=== PATIENT | female | born 1930 | race Caucasian/White ===

== ENCOUNTER 2018-01-03 15:05 | Inpatient (IN) | payer MEDICARE ==
[2018-01-03] MEDS ORDERED: traMADol HCl 50 MG TAB PO PRN (16:11)
[2018-01-03] MEDS ORDERED: Ibuprofen 400 MG TAB PO PRN (16:11)
[2018-01-03] MEDS ORDERED: Zolpidem Tartrate 5 MG TAB PO PRN (16:14)
[2018-01-03] MEDS ORDERED: [UNRECOGNIZED DRUG - REMARK] FS SCH (16:15)
[2018-01-03] MEDS: Acetaminophen 325 MG TAB PO SCH ×3 (17:55→22:31)
[2018-01-03] MEDS: Carvedilol 6.25 MG TAB PO SCH (17:55)
[2018-01-03] MEDS: Lisinopril 20 MG TAB PO SCH (20:43)
[2018-01-03] MEDS: Famotidine 20 MG TAB PO SCH (20:43)
[2018-01-03] MEDS: Senokot S 8.6-50 MG TAB PO SCH (20:44)
[2018-01-04] MEDS: Acetaminophen 325 MG TAB PO SCH ×6 (01:07→20:12)
[2018-01-04 05:53] LABS: Band 3 % (5-11); Eosinophils 5 % (0-10); Hemoglobin 8.4 g/dL (12.0-16.0); Lymphocytes 20 % (21-51); MDiff Complete? YES; Mean Corpuscular HGB CONC 31.6 g/dL (32.0-36.0); Mean Corpuscular Hemoglobin 28.7 pg (27.0-31.0); Mean Corpuscular Volume 90.8 fl (81.0-99.0); Mean Platelet Volume 7.7 fL (7.4-10.4); Microcytosis SLIGHT = 6-15 cells (100X) (0-5/hpf); Monocytes 4 % (0-10); Neutrophil 68 % (42-75); PLT Morphology Comment Appears Adequate; Platelet Count 150 thou/uL (130-400); RBC Distribution Width 13.8 % (11.5-14.5); Red Blood Cell (RBC) Count 2.94 mill/uL (4.20-5.40)
[2018-01-04 05:54] LABS: Anion Gap 7 mmol/L (10-20); BUN (Urea Nitrogen) 11 mg/dL (9.8-20.1); Calc. Creatinine Clearance 55 mL/min (70-130); Calcium 8.2 mg/dL (7.8-10.44); Carbon Dioxide 28 mmol/L (23-31); Chloride 111 mmol/L (98-107); Estimated GFR-MDRD 60; Glucose 98 mg/dL (83-110); Potassium 3.3 mmol/L (3.5-5.1); Sodium 143 mmol/L (136-145)
[2018-01-04] MEDS: Carvedilol 6.25 MG TAB PO SCH ×2 (08:25→17:34)
[2018-01-04] MEDS: Lisinopril 20 MG TAB PO SCH ×2 (08:25→20:12)
[2018-01-04] MEDS: Senokot S 8.6-50 MG TAB PO SCH ×2 (08:26→20:11)
[2018-01-04] MEDS: Famotidine 20 MG TAB PO SCH ×2 (08:26→20:12)
[2018-01-04] MEDS ORDERED: PREDNISOLONE 0.12% EA EYE SCH (09:00)
[2018-01-04] MEDS: PREDNISOLONE 0.12% EA EYE SCH (12:34)
[2018-01-04] MEDS ORDERED: Potassium Chloride 20 MEQ TAB PO SCH (13:15)
--- NOTE | 2018-01-04 13:44 | HP ---
DATE OF ADMISSION: 01/03/2018 CHIEF COMPLAINT: Right femoral neck fracture, status post open reduction internal fixation here for therapy. HISTORY OF PRESENT ILLNESS: This is a very pleasant 87-year-old female, who apparently fel l in her bathroom. She states that she lost her balance. She denies any loss of consciousness. She denies any palpitations. She denies any lightheadedness or dizziness during this episode, but she h as had episodes of dizziness in the past. She apparently was able to get up on her own and went to b ed, but then when she woke up 4 hours later and try to walk, she had significant pain and so came to the ER. In the ER, she was diagnosed with a right femoral neck fracture and underwent open reduction internal fixation. She has been transferred here for therapy. Currently, she states the pain is we ll controlled. She denies any chest pain or shortness of breath. She denies any lightheadedness, di zziness or fainting spells. Her daughter is in the room. PAST MEDICAL HISTORY: 1. Atrial fibrillation. 2. Hypertension. 3. Insomnia. PAST SURGICAL HISTORY: 1. History of colon resection. 2. Eye surgery. CURRENT MEDICATIONS: She has been transferred here on the following medications: 1. Tylenol 650 q. 4 hours p.r.n. 2. Aspirin 81 mg daily. 3. Carvedilol 12.5 mg b.i.d. 4. Pepcid 20 mg b.i.d. 5. Ibuprofen 600 mg q.8 hours p.r.n. for pain 1-5. 6. Zestril 20 mg b.i.d. 7. Prednisolone eyedrops. 8. Tramadol 100 mg p.o. q.6 hours p.r.n. for pain 5-10. 9. Ambien 5 mg p.o. at bedtime p.r.n. ALLERGIES: No known drug allergies. FAMILY HISTORY: Noncontributory to current admission. PSYCHOSOCIAL HISTORY: She lives independently active. No history of tobacco, alcohol, or IV drug ab use. REVIEW OF SYSTEMS: CARDIOVASCULAR: Denies any chest pain, shortness of breath, palpitations, paroxysmal nocturnal dyspn ea, orthopnea, pedal edema. RESPIRATORY: Denies any chronic cough, expectoration or pleuritic type chest pain. GASTROINTESTINAL: Denies any nausea, vomiting, diarrhea, constipation, hematemesis, melena, hematoch ezia. GENITOURINARY: Denies any frequency, urgency, dysuria, or hematuria. RUG SETTER AXMINSTER: Denies any focal numbness, weakness, or fainting spells. She does have pain in her hip area, b ut is controlled with medications. SKIN: She denies any rash. ENT: Denies any difficulty with speech or swallowing. PHYSICAL EXAMINATION: GENERAL: Very pleasant 87-year-old female who is resting comfortably in no apparent distre ss. She responds appropriately to questions. She is alert, awake, and oriented x3. Her youngest alexander meyer is in the room as well. VITAL SIGNS: She is afebrile, heart rate is 89, respirations 22, oxygen saturation 99% on room air, and blood pressure is 114/65. HEENT: Normocephalic, atraumatic. Pupils equally reactive to light and accommodation. NECK: No JVD, thyromegaly, cervical adenopathy, throat exudates or carotid bruits. CARDIOVASCULAR: S1 and S2 plus, rate and rhythm regular. RESPIRATORY: Normal vesicular breath sounds heard in all lung chow. ABDOMEN: Soft, nontender, bowel sounds heard in all quadrants. EXTREMITIES: Without cyanosis or clubbing. Trace edema right leg. Right hip incision with dressing . CENTRAL NERVOUS SYSTEM: Generalized weakness. LABORATORY VALUES: White count is 6.0, H&H is 8.4 and 26.7. Sodium 143, potassium is slightly low a t 3.3. BUN and creatinine is 11 and 0.89. IMPRESSION: 1. Status post fall and right hip fracture, status post open reduction internal fixation. 2. History of atrial fibrillation, now in sinus rhythm. 3. Hypertension, well controlled. 4. Anemia, likely due to acute blood loss. 5. Hypokalemia. 6. Deconditioning. PLAN: 1. Continue low sodium diet. 2. Replace potassium. 3. Continue current medications. 4. Deep venous thrombosis prophylaxis with PlexiPulses. 5. Stress ulcer prophylaxis. She is on Pepcid. 6. Monitor potassium levels. 7. Physical therapy and occupational therapy. 8. Monitor heart rate and rhythm. 9. Discussed with patient and daughter in detail. All questions answered. 10. Estimated length of stay 7-10 days.
[2018-01-05 05:36] LABS: Anion Gap 10 mmol/L (10-20); BUN (Urea Nitrogen) 12 mg/dL (9.8-20.1); Calc. Creatinine Clearance 54 mL/min (70-130); Carbon Dioxide 25 mmol/L (23-31); Chloride 111 mmol/L (98-107); Estimated GFR-MDRD 59; Glucose 99 mg/dL (83-110); Potassium 3.4 mmol/L (3.5-5.1); Sodium 143 mmol/L (136-145)
[2018-01-05] MEDS: Acetaminophen 325 MG TAB PO SCH ×6 (05:46→20:01)
[2018-01-05] MEDS: Carvedilol 6.25 MG TAB PO SCH ×2 (08:43→17:55)
[2018-01-05] MEDS: Lisinopril 20 MG TAB PO SCH ×2 (08:43→20:02)
[2018-01-05] MEDS: Senokot S 8.6-50 MG TAB PO SCH ×2 (08:45→20:03)
[2018-01-05] MEDS: Famotidine 20 MG TAB PO SCH ×2 (08:47→20:02)
[2018-01-05] MEDS: PREDNISOLONE 0.12% EA EYE SCH ×2 (14:27→14:42)
[2018-01-06] MEDS: Acetaminophen 325 MG TAB PO SCH ×6 (02:16→21:42)
[2018-01-06] MEDS: Carvedilol 6.25 MG TAB PO SCH ×2 (08:17→17:32)
[2018-01-06] MEDS: Famotidine 20 MG TAB PO SCH ×2 (08:18→21:36)
[2018-01-06] MEDS: Lisinopril 20 MG TAB PO SCH ×2 (08:19→21:36)
[2018-01-06] MEDS: Senokot S 8.6-50 MG TAB PO SCH ×2 (08:20→21:35)
[2018-01-06] MEDS: PREDNISOLONE 0.12% EA EYE SCH (08:23)
[2018-01-06] MEDS ORDERED: Carvedilol 25 MG TAB PO SCH (20:00)
--- NOTE | 2018-01-06 23:25 | PRG ---
DATE OF SERVICE: 01/06/2018 SUBJECTIVE: The patient feels well, lying in bed with minimal complaints of pain in her right hip, s tatus post open reduction and internal fixation. When questioned about her surgery and her blood pre ssure control, she states her blood pressure has never been fairly well controlled, only takes p.r.n. hydralazine per instructions of Dr. Cardoza in addition to her regular medication. She has a history of paroxysmal atrial fibrillation, is now on diltiazem and carvedilol for control of this and her bl ood pressure. OBJECTIVE: VITAL SIGNS: Blood pressure 177/77 now. Temperature is 97.6, pulse 65, respirations 18, O2 sats 98% on room air. LUNGS: Clear. CARDIAC: Shows regular rhythm. ABDOMEN: Soft, nontender. SKIN AND EXTREMITIES: Display healing right hip incision. ASSESSMENT: 1. Uncontrolled hypertension. We will increase carvedilol 25 twice daily. May start routine hydral azine. 2. History of atrial fibrillation, now in sinus rhythm, diltiazem, metoprolol. We will watch for br adycardia. 3. Anemia, stable. 4. Hypokalemia, resolved. PLAN: Increase carvedilol to 25 twice daily. Continue to monitor blood pressure and vital signs dur ing therapy. Continue other medications. Continue pain relief as needed. Continue DVT and stress u lcer prophylaxis. Continue to monitor for recurrent atrial fibrillation.
[2018-01-07] MEDS: Acetaminophen 325 MG TAB PO SCH ×6 (01:39→20:03)
[2018-01-07 04:00] VITALS: BMI 30.9
[2018-01-07] MEDS: Famotidine 20 MG TAB PO SCH ×2 (08:33→20:03)
[2018-01-07] MEDS: Carvedilol 25 MG TAB PO SCH ×2 (08:33→17:31)
[2018-01-07] MEDS: Lisinopril 20 MG TAB PO SCH ×2 (08:33→20:05)
[2018-01-07] MEDS: Senokot S 8.6-50 MG TAB PO SCH ×3 (08:34→20:15)
[2018-01-07] MEDS: PREDNISOLONE 0.12% EA EYE SCH (08:34)
--- NOTE | 2018-01-07 19:14 | PRG ---
DATE OF SERVICE: 01/07/2018 SUBJECTIVE: The patient feels well, lying in bed with no complaints of headaches, dizziness, shortne ss of breath. OBJECTIVE: VITAL SIGNS: Show blood pressure still up to 193/84, temperature is 98, pulse 73, respirations 18, O 2 sats 98% on room air. LUNGS: Clear. CARDIAC: Shows regular rhythm. ABDOMEN: Soft and nontender. SKIN AND EXTREMITIES: Display no edema, clubbing or cyanosis and a healing right hip incision. ASSESSMENT: 1. Resolving right hip fracture status post open reduction internal fixation. 2. Uncontrolled hypertension on increased carvedilol, diltiazem. 3. Paroxysmal atrial fibrillation, now in sinus rhythm. The patient is doing well, lying in bed wit h no complaints of shortness of breath or chest pain. PLAN: Add amlodipine 10 mg at night. Continue carvedilol 12.5 twice daily. Continue diltiazem. Co ntinue to monitor vital signs including pulse and blood pressure. Continue PT and OT tomorrow and pa in relief with tramadol as needed.
[2018-01-08] MEDS: Acetaminophen 325 MG TAB PO SCH ×6 (00:36→20:12)
[2018-01-08] MEDS: Senokot S 8.6-50 MG TAB PO SCH ×2 (09:01→20:13)
[2018-01-08] MEDS: Lisinopril 20 MG TAB PO SCH ×2 (09:01→20:12)
[2018-01-08] MEDS: Carvedilol 25 MG TAB PO SCH ×2 (09:01→18:35)
[2018-01-08] MEDS: Famotidine 20 MG TAB PO SCH ×2 (09:01→20:12)
[2018-01-08] MEDS: PREDNISOLONE 0.12% EA EYE SCH (09:04)
[2018-01-08] MEDS ORDERED: Acetaminophen 325 MG TAB ONE (17:30)
--- NOTE | 2018-01-08 19:24 | PRG ---
DATE OF SERVICE: 01/08/2018 SUBJECTIVE: The patient feels well with minimal pain in her right hip. No shortness of breath or ch est pain. Cooperating well with therapy. OBJECTIVE: Temperature is 96.5, pulse 82, respirations 20, O2 sat 99% on room air, blood pressure 15 0/70. Therapy states that the patient is off 4 and 60 feet today with a rolling walker with standby assistance, weightbearing as tolerated. ASSESSMENT: 1. Resolving right total hip with decreased pain, increased range of motion. 2. Hypertension, improved control to goal on increased medication of amlodipine 10 mg at night and c ontinue carvedilol 12.5 twice daily and diltiazem regular dose. 3. Paroxysmal atrial fibrillation with no evidence of recurrence. PLAN: 1. Continue PT, OT. Continue to monitor vital signs during therapy. 2. Continue pain relief as needed. 3. Continue amlodipine at night, carvedilol twice daily and diltiazem once daily.
[2018-01-08] MEDS: Amlodipine 10 MG TAB PO SCH (20:12)
[2018-01-09] MEDS: Acetaminophen 325 MG TAB PO SCH ×6 (00:57→20:20)
[2018-01-09] MEDS: Lisinopril 20 MG TAB PO SCH ×2 (09:08→20:21)
[2018-01-09] MEDS: Famotidine 20 MG TAB PO SCH ×2 (09:08→20:22)
[2018-01-09] MEDS: Senokot S 8.6-50 MG TAB PO SCH ×2 (09:09→22:31)
[2018-01-09] MEDS: Carvedilol 25 MG TAB PO SCH ×2 (09:09→16:13)
[2018-01-09] MEDS: PREDNISOLONE 0.12% EA EYE SCH (11:00)
--- NOTE | 2018-01-09 13:32 | PRG ---
DATE OF SERVICE: 01/09/2018 SUBJECTIVE: Ms. Molina is doing well. Denies any complaints, resting comfortably, tolerating her th erapy. OBJECTIVE: VITAL SIGNS: She is afebrile, heart rate is 58, respirations 17, oxygen saturation 98% on room air, and blood pressure this morning was high at 174/72. CARDIOVASCULAR: S1 and S2 plus. RESPIRATORY: Normal vesicular breath sounds. ABDOMEN: Soft, nontender, bowel sounds heard in all quadrants. EXTREMITIES: Without cyanosis or clubbing. Peripheral pulses are palpable. IMPRESSION: 1. Right femoral neck fracture status post open reduction internal fixation. 2. Hypertension, not well controlled. 3. Atrial fibrillation, rate controlled. 4. Insomnia. 5. Improving deconditioning. PLAN: 1. Continue current medications. 2. Monitor blood pressure and adjust medications as needed. 3. Heart healthy diet. 4. Monitor heart and rhythm. 5. Incision care. 6. DVT and stress ulcer prophylaxis. 7. Decubitus precautions. 8. Discharge to home once stable from therapy standpoint.
[2018-01-09] MEDS: Amlodipine 10 MG TAB PO SCH (20:21)
[2018-01-10] MEDS: Acetaminophen 325 MG TAB PO SCH ×6 (00:58→19:47)
[2018-01-10 05:20] LABS: #Basophils 0.1 thou/uL (0.0-0.2); #Eosinphils 0.4 thou/uL (0.0-0.7); #Lymphocytes 2.4 thou/uL (1.20-3.40); #Monocytes 0.7 thou/uL (0.11-0.59); #Neutrophils 4.5 thou/uL (1.40-6.50); %Basophils 1.2 % (0.0-1.0); %Eosinophils 4.5 % (0.0-10.0); %Lymphocytes 29.5 % (21.0-51.0); %Monocytes 8.4 % (0.0-10.0); %Neutrophils 56.5 % (42.0-75.0); Hemoglobin 8.5 g/dL (12.0-16.0); Mean Corpuscular HGB CONC 32.3 g/dL (32.0-36.0); Mean Corpuscular Hemoglobin 28.9 pg (27.0-31.0); Mean Corpuscular Volume 89.3 fl (81.0-99.0); Platelet Count 268 thou/uL (130-400); RBC Distribution Width 13.9 % (11.5-14.5); Red Blood Cell (RBC) Count 2.95 mill/uL (4.20-5.40)
[2018-01-10 05:38] LABS: Anion Gap 10 mmol/L (10-20); BUN (Urea Nitrogen) 12 mg/dL (9.8-20.1); Calc. Creatinine Clearance 62 mL/min (70-130); Calcium 7.9 mg/dL (7.8-10.44); Carbon Dioxide 25 mmol/L (23-31); Chloride 110 mmol/L (98-107); Estimated GFR-MDRD 68; Glucose 92 mg/dL (83-110); Sodium 142 mmol/L (136-145)
[2018-01-10 06:02] LABS: Potassium 2.8 mmol/L (3.5-5.1)
[2018-01-10] MEDS ORDERED: Potassium Chloride 20 MEQ TAB PO SCH ×2 (06:15→10:15)
[2018-01-10] MEDS: Carvedilol 25 MG TAB PO SCH ×2 (08:33→17:01)
[2018-01-10] MEDS: Famotidine 20 MG TAB PO SCH ×2 (08:33→19:47)
[2018-01-10] MEDS: Lisinopril 20 MG TAB PO SCH ×2 (08:34→19:48)
[2018-01-10] MEDS: PREDNISOLONE 0.12% EA EYE SCH (08:39)
[2018-01-10] MEDS: Senokot S 8.6-50 MG TAB PO SCH ×2 (08:40→19:48)
--- NOTE | 2018-01-10 13:51 | PRG ---
DATE OF SERVICE: 01/10/2018 SUBJECTIVE: Ms. Molina is doing well. Denies any complaints, resting comfortably, cleared by therap y for discharge tomorrow. Her incision looks good. Plan is to remove her alvina today. Her grandd claudy is in the room. Her potassium was low and it was replaced. We will recheck the levels again . No other concerns or questions. OBJECTIVE: VITAL SIGNS: She is afebrile, heart rate is 84, respirations 26, oxygen saturation 99% on room air, blood pressure 150/84. CARDIOVASCULAR: S1, S2 plus. RESPIRATORY: Normal breath sounds. ABDOMEN: Soft, nontender, bowel sounds heard. EXTREMITIES: Without cyanosis or clubbing. Some bruising in the right hip area, incision is healthy . LABORATORY VALUES: Done this morning shows a white count of 8, H&H is 8.5 and 26.3, sodium 142, pota ssium is low 2.8, BUN and creatinine 12 and 1.8. IMPRESSION: 1. Hypokalemia. 2. Status post fall and right hip fracture, status post open reduction internal fixation. 3. Hypertension, improving control. 4. Atrial fibrillation. 5. Insomnia. PLAN: 1. Continue current medications. 2. Replace potassium. 3. Remove alvina. 4. Recheck potassium and magnesium level. 5. Physical therapy. 6. Discharge planning.
[2018-01-10 14:31] LABS: Magnesium 1.8 mg/dL (1.6-2.6); Potassium 3.3 mmol/L (3.5-5.1)
[2018-01-10] MEDS: Amlodipine 10 MG TAB PO SCH (19:47)
[2018-01-11] MEDS: Acetaminophen 325 MG TAB PO SCH ×4 (00:15→13:36)
[2018-01-11 07:35] VITALS: BP 153/69; TEMP 98
[2018-01-11] MEDS: Carvedilol 25 MG TAB PO SCH (08:10)
[2018-01-11] MEDS: Famotidine 20 MG TAB PO SCH (08:11)
[2018-01-11] MEDS: Lisinopril 20 MG TAB PO SCH (08:11)
[2018-01-11] MEDS: PREDNISOLONE 0.12% EA EYE SCH (08:12)
[2018-01-11] MEDS: Senokot S 8.6-50 MG TAB PO SCH (08:12)
[2018-01-11] MEDS ORDERED: Potassium Chloride 20 MEQ TAB PO SCH (13:15)
--- NOTE | 2018-01-11 13:33 | DIS ---
DATE OF ADMISSION: 01/03/2018 DATE OF DISCHARGE: 01/11/2018 PRINCIPAL DIAGNOSES: 1. Right femoral neck fracture status post fall and had open reduction internal fixation. 2. Atrial fibrillation. 3. Hypertension. 4. Hypokalemia. 5. Insomnia. COMPLICATIONS: None. ADVERSE REACTIONS: None. PROCEDURES: None. CONSULTATIONS: Physical therapy and occupational therapy. HOSPITAL COURSE: The patient was admitted after undergoing open reduction internal fixation for a ri ght femoral neck fracture, which she suffered when she fell in her bathroom. She has done well with therapy here. Her alvina were removed. She was deemed stable for discharge to home on 01/11/2018 w [facility]. She was noticed to have episodes of hypokalemia and magnesium level was checked, wh ich was within normal limits. She is not on any medications, which should cause her to have hypokale dillon. I advised the patient to eat a banana daily as well as a drink some orange juice and have it re checked with her primary care physician in a week's time. MEDICATIONS: She will continue on her same medications which are, 1. Tylenol 650 mg q.4 hours p.r.n. 1. Aspirin 81 mg daily. 2. Carvedilol 12.5 mg b.i.d. 3. Pepcid 20 mg daily. 4. Ibuprofen 600 mg t.i.d. p.r.n. 5. Zestril 20 mg b.i.d. 6. Prednisolone eyedrops and she had the corneal transplant. 7. Tramadol 100 mg p.o. q.6 hours p.r.n. 8. Ambien 5 mg p.o. at bedtime p.r.n. DIET: She is to be on a heart healthy diet. ACTIVITY: As tolerated. FOLLOWUP: She is to follow up with her primary care physician and her orthopedic surgeon in 7-10 day s. Get a repeat basic metabolic panel done in 7 days. She is to call us with any questions or radha rns. She stated that she did not need any refills or any prescriptions at this time. PHYSICAL EXAMINATION: On the day of discharge, VITAL SIGNS: She is afebrile, heart rate is 66, respirations 19, oxygen saturation 98% on room air, blood pressure 153/69. CARDIOVASCULAR: S1, S2 plus. RESPIRATORY: Normal vesicular breath sounds. ABDOMEN: Soft, nontender, bowel sounds heard in all quadrants. EXTREMITIES: Without cyanosis or clubbing. Right hip incision is healthy. Some bruising noted. LABORATORY VALUES: Her potassium was 3.3 this morning, it was 2.8 yesterday. Sodium 142, BUN and cr eatinine is 12 and 0.8. Magnesium was 1.8. White count was 8.0 with an H&H of 8.5 and 26.3. She wi ll get another 40 mEq of potassium p.o. now prior to discharge. No family at bedside. I discussed with patient in detail. Total time spent on this discharge was 30 minutes.
== END 2018-01-11 13:25 | disposition home health service (06) | DRG 560 ==
LOC: NAV ACUTE 15:05
PROVIDERS: ADMIT Internal Medicine; ATTEND Internal Medicine
DX: S72.001D Fracture of unspecified part of neck of right femur, subsequent encounter for closed fracture with routine healing (principal); D62 Acute posthemorrhagic anemia; I10 Essential (primary) hypertension; G47.00 Insomnia, unspecified; Z90.49 Acquired absence of other specified parts of digestive tract; E87.6 Hypokalemia; I48.0 Paroxysmal atrial fibrillation
CPT/HCPCS: 36415; 80048; 83735; 85025; G8978-GP-CK; G8979-GP-CI